=== PATIENT | male | born 1990 | race African-American/Black ===

== ENCOUNTER 2022-10-10 10:20 | Inpatient (IN) ==
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
[2022-10-10] MEDS ORDERED: SODIUM CHLORIDE 0.9% 1000ML 1,000 ML IV ONE (10:48)
[2022-10-10] MEDS ORDERED: ONDANSETRON INJ 2 MG/ML 2 ML VIAL IV STA (10:48)
[2022-10-10] MEDS ORDERED: KETOROLAC TROMETHAMINE 15 MG/ML VIAL IV ONE (10:48)
[2022-10-10 11:12] LABS: Basophils # (auto) 0.01 K/uL (0-0.2); Basophils % (auto) 0.2 %; Eosinophils # (auto) 0.07 K/uL (0-0.50); Eosinophils % (auto) 1.5 %; Hematocrit (blood only) 43.5 % (42.0-52.0); Hemoglobin 15.5 g/dl (14.0-18.0); Immature Granulocytes # (auto) 0.01 K/uL (0.01-0.20); Immature Granulocytes % (auto) 0.2 %; Lymphocytes # (auto) 1.35 K/uL (1.2-3.4); Lymphocytes % (auto) 29.9 %; Mean Corpuscular Hemoglobin 29.6 pg (25.0-34.0); Mean Corpuscular Hgb Conc 35.6 g/dL (32.0-36.0); Mean Corpuscular Volume 83.2 fL (80.0-100.0); Mean Platelet Volume 12.1 fL (9.4-12.4); Monocytes # (auto) 0.37 K/uL (0.11-0.59); Monocytes % (auto) 8.2 %; Neutrophils # (auto) 2.71 K/uL (1.40-6.50); Platelet Count 143 K/uL (130-400); RDW Coefficient of Variation 12.4 % (11.5-14.5); RDW Standard Deviation 37.4 fL (36.4-46.3); Red Blood Count 5.23 M/uL (4.70-6.10); White Blood Count 4.52 K/ul (4.8-10.8)
[2022-10-10 11:14] LABS: Appearance Urine Cloudy (Clear); Bacteria Urine Automated Negative (Negative); Bilirubin Urine Negative (Negative); Blood Urine Negative (Negative); Cast Urine Automated 0 /lpf (0-5); Color Urine Yellow; Glucose Urine UA Negative (Negative); Ketones Urine Negative (Negative); Leukocyte Esterase Urine Negative (Negative); Nitrite Urine Negative (Negative); Protein Urine Negative (Negative); RBC Urine Automated 0-4 /hpf (0-4); Specific Gravity Urine 1.013 (1.000-1.030); Urobilinogen Urine Negative (Negative)
[2022-10-10 11:32] LABS: Albumin Globulin Ratio 1.5 (0.9-2); Albumin Level 4.6 gm/dl (3.4-5.0); BUN Creatinine Ratio 9.4 (10-20); Bilirubin,Total 0.9 mg/dl (0.2-1.0); Calcium 9.6 mg/dl (8.6-10.3); Creatinine Clr Calc Pharmacy 105.5 ml/min; Est GFR (African American) 77.3 ml/min; Est GFR (Non-African American) 66.7 ml/min; Globulin 3.1 gm/dl (2.5-4.0); Potassium 4.4 mmol/L (3.5-5.1); Total Protein 7.7 gm/dl (6.0-8.3)
[2022-10-10] MEDS ORDERED: OPTIRAY 320 100ml IV ONE (12:33)
--- NOTE | 2022-10-10 13:44 | CT Scan Report ---
ABDOMEN AND PELVIS CT WITH IV CONTRAST CT DOSE: 1465.79 mGy.cm HISTORY: Generalized abdominal pain. Cramping. TECHNIQUE: Multiaxial CT images of the abdomen and pelvis were performed following the use of intrave nous contrast. A dose lowering technique was utilized adhering to the principles of ALARA. COMPARISON STUDY: None. FINDINGS: Mild dependent changes seen at the lung bases. No pneumoperitoneum. No pneumatosis. Postope rative changes seen within the left femur. Small bony exostosis at the left iliac bone. Tiny fat-cont aining umbilical hernia. There are few subcentimeter hypodensities within the right hepatic dome. The se are technically too small to characterize but favor cysts. The main portal vein is patent. A small amount of pericholecystic fluid is noted. No gallbladder wall thickening. Normal caliber common bile duct. The pancreas, spleen, adrenal glands, and kidneys are unremarkable. No hydronephrosis. Normal caliber abdominal aorta. No retroperitoneal or pelvic lymphadenopathy. The bladder is unremarkable. N o pelvic free fluid. Prior sigmoid anastomosis. No bowel wall thickening or obstruction. Normal appen christiana. IMPRESSION: 1. Small amount of pericholecystic fluid. This nonspecific but could be due to underlying hepatic dis ease or a developing acute cholecystitis. 2. No bowel wall thickening or obstruction. 3. Normal appendix. 4. No hydronephrosis. 5. Additional findings as described above. ACT 112: Negative or not required by law. Electronically signed by: Juan Russo M.D. 10/10/2022 1:42 PM
[2022-10-10] MEDS ORDERED: metroNIDAZOLE 500 MG/100 ML BAG IV STA (13:49)
[2022-10-10] MEDS ORDERED: cefTRIAXone SODIUM 2,000 MG/70 ML BAG IV STA (13:49)
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
--- NOTE | 2022-10-10 14:58 | Emergency Department Note ---
ED Visit Note I assumed care at the change of shift. An ultrasound of the liver/gallbladder was pending. Dr. Flores was able to review the ultrasound prior to the end of his shift. He did contact surgery. There was no need for my involvement in this patient's care. .
--- NOTE | 2022-10-10 15:12 | Ultrasound Report ---
ULTRASOUND RIGHT UPPER QUADRANT ABDOMEN CLINICAL HISTORY: Right upper quadrant abdominal pain. COMPARISON STUDY: Abdominal CT dated 10/10/2022. TECHNIQUE: Real-time, grayscale, and color flow sonography of the right upper quadrant of the abdomen was performed. Images are reviewed in the transverse and longitudinal planes. FINDINGS: Liver: The liver is normal in size and echotexture. There is no intrahepatic biliary ductal dilatatio n. The main portal vein is patent. Gallbladder: The gallbladder is distended. The wall appears thickened and edematous measuring up to 4 mm. There are small gallstones. No pericholecystic fluid is seen. A sonographic Alvarenga's sign is rep ortedly absent. The common bile duct measures up to 0.6 cm in diameter. Pancreas: Visualized portions of the pancreatic head and body are normal in appearance. Right kidney: Survey images of the right kidney demonstrate normal size and echotexture. There is no hydronephrosis. Ascites: None. IMPRESSION: 1. Distended gallbladder with tiny gallstones and a mildly thickened and edematous wall. A sonographi c Alvarenga's sign is reportedly absent. When correlated with today's CT scan the findings are suspiciou s for acute cholecystitis. Correlate with clinical and laboratory findings. A nuclear hepatobiliary s can could be considered for confirmation. 2. There is no intrahepatic biliary ductal dilatation. ACT 112: Negative or not required by law. Electronically signed by: Doug Horta M.D. 10/10/2022 3:11 PM
[2022-10-10] MEDS ORDERED: ACETAMINOPHEN 325 MG TAB PO PRN (17:42)
[2022-10-10] MEDS ORDERED: ONDANSETRON INJ 2 MG/ML 2 ML VIAL IV PRN (17:42)
[2022-10-10] MEDS: SODIUM CHLORIDE 0.9% 1000ML 1,000 ML IV SCH (18:30)
[2022-10-10] MEDS: MoRPHine SULFATE 2 MG/ML CARP IV PRN ×2 (18:30→22:30)
[2022-10-10] MEDS: ESCITALOPRAM OXALATE 10 MG TAB PO SCH (21:36)
[2022-10-10] MEDS: metroNIDAZOLE 500 MG/100 ML BAG IV SCH (23:22)
[2022-10-11] MEDS: SODIUM CHLORIDE 0.9% 1000ML 1,000 ML IV SCH ×3 (06:04→22:06)
[2022-10-11] MEDS ORDERED: ACETAMINOPHEN 1000 MG/100 ML IV IV ONE (06:27)
[2022-10-11] MEDS ORDERED: MIDAZOLAM HCL 1 MG/ML 2ML VIAL ONE (06:42)
[2022-10-11] MEDS ORDERED: fentaNYL citrate PF 100 MCG/2 ML VIAL ONE ×2 (06:42→09:32)
[2022-10-11] MEDS ORDERED: DEXAMETHASONE SOD INJ 4 MG/ML VIAL ONE (06:43)
[2022-10-11] MEDS ORDERED: SODIUM CHLORIDE 0.9% PF INJ 10 ML VIAL ONE (06:43)
[2022-10-11] MEDS ORDERED: diphenhydrAMINE 50 MG/ML VIAL ONE (06:43)
[2022-10-11] MEDS ORDERED: LIDOCAINE 2% 2 ML VIAL/AMP(20MG/ML) INFIL ONE (06:43)
[2022-10-11] MEDS ORDERED: PROPOFOL IV EMULSION 10 MG/ML 20 ML VIAL IV ONE (06:43)
[2022-10-11] MEDS ORDERED: ROCURONIUM BROMIDE 10 MG/ML 5 ML VIAL IV ONE ×3 (06:43→08:55)
[2022-10-11] MEDS ORDERED: SUGAMMADEX SODIUM 200 MG/2 ML VIAL IV ONE (06:43)
[2022-10-11] MEDS ORDERED: ONDANSETRON INJ 2 MG/ML 2 ML VIAL ONE (06:43)
[2022-10-11] MEDS ORDERED: INDOCYANINE GREEN 25 MG VIAL INJ ONE (06:47)
[2022-10-11] MEDS ORDERED: FAMOTIDINE/PF 20 MG/2 ML VIAL IV ONE (06:50)
[2022-10-11] MEDS ORDERED: fentaNYL citrate PF 100 MCG/2 ML VIAL IV PRN (06:54)
[2022-10-11] MEDS ORDERED: ONDANSETRON INJ 2 MG/ML 2 ML VIAL IV PRN (06:54)
[2022-10-11] MEDS ORDERED: ATROPINE SULFATE 0.1 MG/ML 10ML SYR IV PRN (06:54)
[2022-10-11] MEDS ORDERED: ePHEDrine sulfate 50 MG/ML AMP IV PRN (06:54)
--- NOTE | 2022-10-11 06:54 | Anesthesiology Consultation ---
Date of Service October 11, 2022 Assessment & Plan (1) Encounter for pre-operative examination: Chart Review Chart Review: Acceptable Risk for Surgery and Patient NOT seen in Pre Admission Testing Consults Requested none History Surgery Operation Date: 10/11/22 07:30 Proposed Procedures p Robotic Laparoscopic Cholecystectomy - Juno Crawford DO, FACS Height/Weight Height: 6 ft 4 in Weight: 114.8 kg Allergies Allergy/AdvReac Type Severity Reaction Status Date / Time Penicillins Allergy Severe From Verified 10/10/22 13:02 childhood Medications Home Medications Medication Instructions Recorded Confirmed Last Taken escitalopram oxalate 10 mg tablet 10 mg PO HS 10/10/22 10/10/22 Unknown escitalopram oxalate 5 mg tablet 5 mg PO HS 10/10/22 10/10/22 Unknown (Lexapro) Active Medications Generic Name Dose Route Start Last Admin Trade Name Freq PRN Reason Stop Dose Admin Escitalopram Oxalate 15 mg 10/10/22 21:00 10/10/22 21:36 Escitalopram Oxalate 10 Mg Tab PO 11/09/22 20:59 15 mg HS TRINY Administration Sodium Chloride 1,000 mls @ 100 mls/hr 10/10/22 17:42 10/11/22 06:04 Nss 1000ml IV 11/09/22 17:41 100 mls/hr .Q10H TRINY Administration Metronidazole 500 mg in 100 mls @ 100 mls/hr 10/11/22 00:00 10/11/22 00:22 Flagyl IV 10/21/22 00:00 Infused Q8H TRINY Infusion Protocol Morphine Sulfate 2 mg 10/10/22 17:42 10/10/22 22:30 Morphine Sulfate 2 Mg/Ml Carp IV 10/24/22 17:41 2 mg Q4H PRN Administration Severe Pain (Scale 7, 8, 9,10) NPO Date Last Intake of Fluids: 10/10/22 Time Last Intake of Fluids: 22:00 Date Last Intake of Solids: 10/09/22 Time Last Intake of Solids: 19:00 Past Surgical History Surgical History H/O exploratory laparotomy Social History Smoking Status: Never smoker Hx Alcohol Use: No Hx Substance Use: No Physical Exam Vital Signs Last Vital Signs Temp 97.7 F 10/11/22 06:35 Pulse 82 07/13/23 06:35 Resp 20 10/11/22 06:35 BP 161/88 H 10/11/22 06:35 Pulse Ox 96 10/11/22 06:35 O2 Del Method Room Air 10/11/22 06:35 Testing Laboratory Results 10/10/22 10:55 10/10/22 10:55 Urine Color Yellow 10/10/22 10:55 Urine Appearance Cloudy (Clear) A 10/10/22 10:55 Urine pH 8.0 (4.5-7.5) H 10/10/22 10:55 Ur Specific [place] 1.013 (1.000-1.030) 10/10/22 10:55 Urine Protein Negative (Negative) 10/10/22 10:55 Urine Glucose (UA) Negative (Negative) 10/10/22 10:55 Urine Ketones Negative (Negative) 10/10/22 10:55 Urine Nitrite Negative (Negative) 10/10/22 10:55 Ur Leukocyte Esterase Negative (Negative) 10/10/22 10:55 Urine WBC (Auto) 1-5 /hpf (0-5) 10/10/22 10:55 Urine RBC (Auto) 0-4 /hpf (0-4) 10/10/22 10:55 U Hyaline Cast (Auto) 0 /lpf (0-5) 10/10/22 10:55 U Epithel Cells (Auto) 10-20 /lpf (0-5) H 10/10/22 10:55 Urine Bacteria (Auto) Negative (Negative) 10/10/22 10:55
[2022-10-11] MEDS ORDERED: BUPIVACAINE 0.5 % 5 MG/1 ML MPF 30ML VIAL ONE (07:13)
--- NOTE | 2022-10-11 07:31 | Surgery Progress Note ---
Date of Service October 11, 2022 Assessment & Plan (1) Acute calculous cholecystitis: Plan: Cholelithiasis with cholecystitis. He understands surgery were difficult due to prior laparotomy plan for robotic assisted laparoscopic cholecystectomy with possible cholangi ogram risks discussed to include but not limited to bleeding, infection, retained stone, bile leak, open surgery, damage to surrounding structures including bile duct, need for future or more extensive surgery, failure to treat symptoms, and risks of anesthesia. Admission and Anticipated Discharge Date Admission Date: October 10, 2022 Subjective 32-year-old incarcerated male with cholelithiasis. No changes since last night Physical Exam Constitutional: WD/WN, vitals as above Gastrointestinal (Abdomen): Inspection/Auscultation: + abdominal surgical scar Percussion/Palpation: + abdomen tender and abdomen soft; no guarding, abdomen not rigid and no hepatosplenomegaly Results & Data Vital Signs (Past 12 Hours) Vital Signs Temp Pulse Pulse Resp BP Pulse Ox O2 Del Method 10/11/22 06:35 36.5 C 82 20 161/88 H 96 Room Air 10/10/22 20:48 36.6 C 59 L 18 121/72 98 Room Air PG Care Time/CCT Total # of Minutes Spent Total Time Spent with Patient: Total time spent is greater than 50% in coordination of care (as documented) at patient's floor/unit and/or counseling patient: Coding Level of Care Code 29521 SUB INP/OBS CARE 25MIN Diagnoses Acute calculous cholecystitis K80.00
[2022-10-11] MEDS ORDERED: ePHEDrine sulfate 50 MG/ML SYR ONE (08:45)
[2022-10-11] MEDS ORDERED: ESCITALOPRAM OXALATE 10 MG TAB PO SCH (09:00)
[2022-10-11] MEDS ORDERED: GLYCOPYRROLATE 0.2 MG/ML VIAL ONE (09:32)
--- NOTE | 2022-10-11 09:37 | Operative Report ---
PG Post Operative Report Pre & Post Diagnosis Operation Date: 10/11/22 07:30 Pre-Op Diagnosis: Acute Cholecystitis Post-Op Diagnosis: Acute Cholecystitis, intra-abdominal adhesions I identified the patient and participated in the time-out.: Yes Procedure Operation Date: 10/11/22 07:30 Actual Procedures p Robotic Assisted Laparoscopic Cholecystectomy, Laparospcopic Lysis of Adhesions(Not Applicable) - Juno Crawford DO, NETTIE Surgeon Juno Crawford DO, FACS Pharmacy Operations Coordinator Mary Bermudez Estimated Blood Loss 15 Findings Consistent with Post-Op Diagnosis Entry into the left upper quadrant without difficulty. Bowel and omentum adhesed to abdominal wall from prior laparotomy. Taken down with combination of blunt dissection and sharp dissection. Robotic cholecystectomy performed, critical view of safety obtained, cystic duct and artery doubly clipped and divided. Specimens Gallbladder Anesthesia Type General Complications none Disposition Accompanied Patient To Recovery: No Disposition: Recovery Room Indications 32-year-old male with history of prior laparotomy and cholecystitis, plan for robotic assisted laparoscopic cholecystectomy with possible cholangiogram. The risks of the procedure were discussed, all questions were answered, and the patient agreed to proceed with surgery as planned. Description of Procedure The patient was properly identified, consented, and taken to the operating room where he was placed in the supine position. 2.5 mg of indocyanine green were administered IV approximately 45 min prior to the surgery. General endotracheal anesthesia was induced. SCDs and a safety belt were placed. Preoperative antibiotics were administered. The patient's abdomen was prepped and draped in the standard sterile fashion. A surgical timeout was performed and all parties were in agreement that this was the correct patient and procedure to be performed and we continued as planned. An incision was made in the left upper quadrant. Veress needle was inserted and saline drop test confirmed entry to the abdomen. The abdomen was insufflated with carbon dioxide which the patient tolerated incident. Veress needle was removed and the abdomen is entered using the Optiview technique and a 5 mm camera. The introducer was removed and the abdomen inspected. No damage from initial trocar placement or Veress needle placement was identified. There was significant omental and bowel adhesions to the abdominal wall. An 8 mm port was then placed in the left lower quadrant. A combination of blunt dissection and sharp dissection with laparoscopic scissors was utilized to take down the adhesions from the abdominal wall. This was quite extensive. Once the upper abdomen was free of adhesions and we had a clear window to the gallbladder as well as clear area for port to be placed, we proceeded with the robotic cholecystectomy. 8 mm robotic ports were then placed just to the left of the umbilicus and on the right. An additional 5 mm bricklayer's assistant port was placed in the lateral right subcostal position. The patient was placed in reverse Trendelenburg position and rotated towards the left. The robot was then docked and the camera and robotic instruments were inserted. The gallbladder was distended and inflamed and consistent with acute cholecystitis. Omental adhesions were taken off the gallbladder with cautery. The dome of the gallbladder was grasped by the bricklayer's assistant and retracted towards the left upper quadrant and the infundibulum was retracted toward the right lower quadrant revealing Calot's triangle. Peritoneal attachments were taken down with electrocautery and blunt dissection. The cystic duct and artery were circumferentially dissected. A window of safety was obtained showing the cystic duct entering the gallbladder with no aberrant structures noted. We were able to identify the cystic duct utilizing the ICG. The cystic duct and artery were doubly clipped and divided. The gallbladder was then lifted off the gallbladder fossa with electrocautery. The right upper quadrant was irrigated and hemostasis was found to be good. The gallbladder was placed in an Endo Catch bag and removed through the one of the port sites. The instruments were removed and the robot was undocked. The trochars were removed and the abdomen was allowed to collapse. The skin of all ports was closed with 4-0 Monocryl subcuticular sutures. Dermabond was placed over the wounds. The patient was extubated in the operating room and taken to the PACU where he recovered without apparent incident. All sponge, instrument and needle counts were correct at the conclusion of the procedure. The patient tolerated the procedure well. The nurse practitioner was present and scrubbed for the entirety of the case and was essential in positioning the patient, prepping and draping, retraction and exposure, driving the laparoscope, exchange of the robotic instruments removal of the gallbladder, closure of the incisions, and placement of the dressings. I attest to the content of the Intraoperative Record and any orders documented therein. Any exceptions are noted below.
--- NOTE | 2022-10-11 10:24 | Anesthesiology Progress Note ---
Date of Service October 11, 2022 Anesthesia Post Procedure Vital Signs Vital Signs: Temp Pulse Pulse Pulse Resp BP BP 10/11/22 10:20 97.7 F 96 H 16 143/94 H 10/11/22 10:10 86 19 153/85 H 10/11/22 10:00 69 17 132/81 10/11/22 09:50 68 19 122/71 10/11/22 09:44 97.5 F L 70 18 122/72 10/11/22 06:35 97.7 F 82 20 161/88 H 10/10/22 20:48 97.9 F 59 L 18 121/72 10/10/22 18:03 10/10/22 17:47 97.7 F 52 L 16 132/87 10/10/22 17:21 45 L 18 10/10/22 17:00 80 18 123/87 10/10/22 15:39 98.4 F 51 L 18 114/88 10/10/22 13:45 10/10/22 12:42 58 L 10/10/22 10:37 10/10/22 10:29 97.7 F 63 14 141/80 H Pulse Ox O2 Del Method O2 Flow Rate 10/11/22 10:20 95 Room Air 10/11/22 10:10 99 Oxymask 7 10/11/22 10:00 99 Oxymask 7 10/11/22 09:50 98 Oxymask 7 10/11/22 09:44 97 Oxymask 7 10/11/22 06:35 96 Room Air 10/10/22 20:48 98 Room Air 10/10/22 18:03 Room Air 10/10/22 17:47 98 Room Air 10/10/22 17:21 100 Room Air 10/10/22 17:00 98 Room Air 10/10/22 15:39 98 Room Air 10/10/22 13:45 Room Air 10/10/22 12:42 10/10/22 10:37 Room Air 10/10/22 10:29 98 Room Air Transfer of Care Handoff Completed per policy Notes Mental Status: alert / awake / arousable and participated in evaluation Patient Amnestic to Procedure: Yes Nausea / Vomiting: adequately controlled Pain: adequately controlled Airway Patency, RR, SpO2: stable & adequate BP & HR: stable & adequate Hydration State: stable & adequate Anesthetic Complications: no major complications apparent and Pt Satisfied with anesthetic care
[2022-10-11] MEDS ORDERED: KETOROLAC 30 MG/ML VIAL IV PRN (10:45)
[2022-10-11] MEDS ORDERED: oxyCODONE HCL IR 5 MG TAB (IMMEDIATE RELEASE) PO PRN (10:47)
[2022-10-11] MEDS: metroNIDAZOLE 500 MG/100 ML BAG IV SCH ×2 (11:14→16:27)
[2022-10-11 11:32] LABS: Basophils # (auto) 0.01 K/uL (0-0.2); Basophils % (auto) 0.2 %; Eosinophils # (auto) 0.02 K/uL (0-0.50); Eosinophils % (auto) 0.3 %; Hematocrit (blood only) 38.3 % (42.0-52.0); Hemoglobin 13.5 g/dl (14.0-18.0); Immature Granulocytes # (auto) 0.02 K/uL (0.01-0.20); Immature Granulocytes % (auto) 0.3 %; Lymphocytes % (auto) 8.4 %; Mean Corpuscular Hemoglobin 29.3 pg (25.0-34.0); Mean Corpuscular Hgb Conc 35.2 g/dL (32.0-36.0); Mean Corpuscular Volume 83.1 fL (80.0-100.0); Mean Platelet Volume 12.2 fL (9.4-12.4); Monocytes % (auto) 1.7 %; Neutrophils % (auto) 89.1 %; Platelet Count 130 K/uL (130-400); RDW Coefficient of Variation 12.3 % (11.5-14.5); RDW Standard Deviation 37.2 fL (36.4-46.3); Red Blood Count 4.61 M/uL (4.70-6.10); White Blood Count 5.95 K/ul (4.8-10.8)
[2022-10-11 11:50] LABS: Albumin Level 3.8 gm/dl (3.4-5.0); BUN Creatinine Ratio 7.6 (10-20); Bilirubin Direct 0.2 mg/dl (0-0.2); Bilirubin,Total 0.6 mg/dl (0.2-1.0); Calcium 8.4 mg/dl (8.6-10.3); Creatinine Clr Calc Pharmacy 100.4 ml/min; Est GFR (African American) 72.8 ml/min; Est GFR (Non-African American) 62.8 ml/min; Potassium 3.9 mmol/L (3.5-5.1); Total Protein 6.5 gm/dl (6.0-8.3)
[2022-10-11] MEDS: cefTRIAXone SODIUM 2,000 MG in DEXTROSE 5% 50 ML IV SCH (13:21)
[2022-10-11] MEDS: oxyCODONE HCL IR 5 MG TAB (IMMEDIATE RELEASE) PO PRN (19:35)
[2022-10-11] MEDS: ESCITALOPRAM OXALATE 10 MG TAB PO SCH (20:00)
[2022-10-11] MEDS: MoRPHine SULFATE 2 MG/ML CARP IV PRN (21:14)
[2022-10-12] MEDS: metroNIDAZOLE 500 MG/100 ML BAG IV SCH ×2 (00:19→07:40)
--- NOTE | 2022-10-12 07:31 | Surgery Progress Note ---
Date of Service October 12, 2022 Assessment & Plan (1) Acute calculous cholecystitis: Plan: POD#1 lap tahmnia Patient feeling well. tolerating diet. pain controlled awaiting blood work this AM, if all looks well he may be discharged to care home thereafter dispo instructions reviewed, f/u in clinic within 1-2 weeks Admission and Anticipated Discharge Date Admission Date: October 10, 2022 Supervising Physician Co-Signing Physician Notes Patient seen and examined, labs reviewed, agree with above. POD #1 laparoscopic lysis of adhesions and robotic cholecystectomy. Doing well, tolerating diet, minimal pain. Afebrile stable vitals, incisions without infection, abdomen soft, nondistended. Labs unremarkable. Discharge, follow-up in 2 weeks, wound care instructions and activity striction's reviewed, return precautions given, call with questions or concerns Subjective Patient denies any pain this AM. No nausea/vomiting. Tolerating a diet. Physical Exam Physical Exam: awake/alert, no distress Respiratory: normal respiratory effort Gastrointestinal (Abdomen): Inspection/Auscultation: + abdominal surgical incision (c/d/i with skin glue) Percussion/Palpation: abdomen soft; abdomen nontender Results & Data Vital Signs (Past 12 Hours) Vital Signs Temp Pulse Resp BP Pulse Ox O2 Del Method 10/11/22 22:36 36.6 C 61 17 121/65 97 Room Air 10/11/22 20:00 Room Air PG Care Time/CCT Total # of Minutes Spent Total Time Spent with Patient: Total time spent is greater than 50% in coordination of care (as documented) at patient's floor/unit and/or counseling patient: Coding Level of Care Code 37154 Post Operative Follow-Up Diagnoses Acute calculous cholecystitis K80.00
[2022-10-12] MEDS: SODIUM CHLORIDE 0.9% 1000ML 1,000 ML IV SCH (07:41)
[2022-10-12 08:40] LABS: Basophils # (auto) 0.01 K/uL (0-0.2); Basophils % (auto) 0.1 %; Eosinophils # (auto) 0.06 K/uL (0-0.50); Eosinophils % (auto) 0.9 %; Hematocrit (blood only) 38.9 % (42.0-52.0); Hemoglobin 13.7 g/dl (14.0-18.0); Immature Granulocytes # (auto) 0.01 K/uL (0.01-0.20); Immature Granulocytes % (auto) 0.1 %; Lymphocytes # (auto) 1.68 K/uL (1.2-3.4); Lymphocytes % (auto) 24.9 %; Mean Corpuscular Hgb Conc 35.2 g/dL (32.0-36.0); Mean Corpuscular Volume 82.2 fL (80.0-100.0); Mean Platelet Volume 11.7 fL (9.4-12.4); Monocytes # (auto) 0.44 K/uL (0.11-0.59); Monocytes % (auto) 6.5 %; Neutrophils # (auto) 4.55 K/uL (1.40-6.50); Neutrophils % (auto) 67.5 %; Platelet Count 142 K/uL (130-400); RDW Coefficient of Variation 12.2 % (11.5-14.5); RDW Standard Deviation 36.4 fL (36.4-46.3); Red Blood Count 4.73 M/uL (4.70-6.10); White Blood Count 6.75 K/ul (4.8-10.8)
[2022-10-12 08:58] LABS: Albumin Level 3.9 gm/dl (3.4-5.0); BUN Creatinine Ratio 9.8 (10-20); Bilirubin Direct 0.1 mg/dl (0-0.2); Bilirubin,Total 0.6 mg/dl (0.2-1.0); Calcium 8.5 mg/dl (8.6-10.3); Creatinine Clr Calc Pharmacy 95.2 ml/min; Est GFR (African American) 68.2 ml/min; Est GFR (Non-African American) 58.9 ml/min; Potassium 3.9 mmol/L (3.5-5.1); Total Protein 6.9 gm/dl (6.0-8.3)
[2022-10-12] MEDS: oxyCODONE HCL IR 5 MG TAB (IMMEDIATE RELEASE) PO PRN (13:54)
[2022-10-12] MEDS: cefTRIAXone SODIUM 2,000 MG in DEXTROSE 5% 50 ML IV SCH (13:55)
--- NOTE | 2022-10-16 11:04 | Discharge Summary ---
Date of Service October 12, 2022 Principal Diagnosis acute cholecystitis Discharge Exam alert/awake Respiratory normal respiratory effort Gastrointestinal (Abdomen) Inspection/Auscultation: + abdominal surgical incision (c/d/i/ with skin glue ) Percussion/Palpation: abdomen soft; abdomen nontender Discharge Data Allergies Allergy/AdvReac Type Severity Reaction Status Date / Time Penicillins Allergy Severe From Verified 10/10/22 13:02 childhood Consultations 10/10/22 13:49 ED Decision to Admit Stat Procedures Performed Operation Date: 10/11/22 07:30 Actual Procedures p Robotic Assisted Laparoscopic Cholecystectomy, Laparospcopic Lysis of Adhesions(Not Applicable) - Juno Crawford DO, FACS Ordered Studies 10/10/22 10:43 CT Abd and Pelvis [CT abd pelvis IV con only] Stat 10/10/22 13:56 US RUQ [US liver] Stat Hospital Course (1) Acute calculous cholecystitis: Patient presented to the [facility] ER 10/10/22 with complaints of abdominal pain. CT imaging showed a/p that showed a small amount of pericholecystic fluid. This nonspecific but could be due to underlying hepatic disease or a developing acute cholecystitis. Patient's labs show WBC 4.5, Hbg 15.5, Cr 1.3, Tb 0.9, elevation in AST & ALT at 252 and 210, lipase 53. A Ultrasound showed findings suspicious for acute cholecystitis. You were admitted to the hospital and under went a Robotic assisted laparoscopic cholecystectomy without complications. You were discharged on 10/12/22 in stable condition back to your facility. Total Time Total Time Spent Total Time Spent (In Minutes): 15 Discharge Plan Discharge Items [facility] Disposition[facility] Reason For Visit: ABDOMINAL PAIN ACUTE CHOLECYSTITIS Discharge Diagnosis: laparoscopic cholecystectomy Activity: Per Instructions section Lifting: No more than 10 pounds Bathing Comment: may shower Exercise/Sports: Wait until after follow-up appointment Non-emergency contact: Surgeon Call non-emergency contact if: you have any medication questions, your pain is not controlled, you have a fever, your temperature is above 101.5, your wound has increased redness, your wound has increased drainage and your wound pain has increased Follow-up/Referrals: Juno Crawford DO, FACS [Physician] - (Please call to schedule follow up in clinic within 2 weeks ) Jag CARROLL [Primary Care Provider] - Diet: Regular Addtl Attending Provider Instructions: You have skin glue over your incisions called dermabond. you may shower with this on. It will tend to dissolve and fall off within a couple weeks. Do not pick at the skin glue You may take Tylenol #3 if your facility provides it for pain. Otherwise you may take Tylenol or Ibuprofen. Do not exceed the daily limit of acetaminophen within a 24 hour time period. Pending Studies at Discharge: Yes Studies:: surgical pathology Stand-Alone Forms: My [facility] Skilled Items Patient informed of condition?: Yes Discharge Level of Care: Other Communicable Disease: No Discharge Prognosis: Stable Lines: None Urinary Catheter: No Medications and DC Order Prescriptions: Continued escitalopram oxalate 10 mg Tablet 10 mg PO HS Rx Instructions: Take with 5 mg tab =15 mg escitalopram oxalate [Lexapro] 5 mg Tablet 5 mg PO HS Rx Instructions: Take with 10 mg = 15 mg Discharge Orders: Discharge Order (Routine); Ordered 10/12/22 Ordered By: Fatuma Mejias Admission Data Admit Date/Time: 10/10/22 15:30 Attending Provider: Juno Crawford Admit Provider: Juno Crawford Primary Care Provider: Jag CARROLL Other Providers: Juno Crawford Other Interventions: Discharge Summary Assessment (RN) Last Done: 10/12/22 10:54 Coding Level of Care Code 87284 IN/OBS DISCH 30 MIN/LESS Diagnoses Acute calculous cholecystitis K80.00
== END 2022-10-12 15:37 | DRG 419 ==
LOC: ED 10:20 → 3W 15:30